=== PATIENT | female | born 1930 ===

== ENCOUNTER → 2017-10-07 | Outpatient (CLI) | payer OTHER | LOC: BMCIMAGING 15:26 | PROVIDERS: ATTEND Podiatrist Foot & Ankle Surgery | DX: M25.571 Pain in right ankle and joints of right foot (principal) ==

== ENCOUNTER 2018-10-23 14:25 | Emergency (ER) | payer OTHER ==
--- NOTE | 2018-10-23 14:36 | EDPHY ---
H & P Stated Complaint: n/v/d since eating lunch 20 minutes ago; feels better now Time Seen by Provider: 10/23/18 14:36 HPI/ROS: HPI CHIEF COMPLAINT: Diarrhea. HISTORY OF PRESENT ILLNESS: This is a 88-year-old female she has a history of hypertension, thyroid disease, presents emergency room after she was out at lunch today with her family. She had a very large meal which included a sandwich, chips, Israeli fries, Lemonade, guacamole, and typically does not eat a very large meal. And she was at a restaurant for an hour when getting ready leave the restaurant she developed bad diarrhea. She states was watery brown. She had use the bathroom 3 times. No vomiting but did have some nausea. Denies any chest pain or shortness of breath, denies diaphoresis, denies significant abdominal pain or cramps. She reports to me that recently she has been in physical therapy for balance issues, and dizziness, and she often eats a meal at 5:00 a.m. Which consist of a bagel with cream cheese and then does not eat another meal total 4:00 p.m.. However she has been working on eating very small regular meals. However she states that she does not typically eat large meals late lunch today and she contributes eating this large meal to her diarrhea process. She arrives to the emergency room with request of her family at bedside who became concerned about here. However she reports to me that she does not really feel ill she denies any abdominal pain chest pain or shortness of breath. Her diarrhea has resolved. No abdominal cramping. She states she feels much better and believes that the diarrhea is over would like to go home. Past Medical History: Hypertension, thyroid disease, balance issues, dizziness Past Surgical History: No recent surgery Social History: Lives alone, denies drugs alcohol tobacco. Family History: Noncontributory ROS REVIEW OF SYSTEMS: 10 Systems were reviewed and negative with the exception of the elements mentioned in the history of present illness. Exam Constitutional elderly, nontoxic no acute distress triage nursing summary reviewed, vital signs reviewed, awake/alert. Vital signs stable Eyes normal conjunctivae and sclera, EOMI, PERRLA. HENT normal inspection, atraumatic, moist mucus membranes, no epistaxis, neck supple/ no meningismus, no raccoon eyes. Respiratory clear to auscultation bilaterally, normal breath sounds, no respiratory distress, no wheezing. Cardiovascular rate normal, regular rhythm, no murmur, no edema, distal pulses normal. Gastrointestinal no significant tenderness on abdominal exam, soft, non-tender , no rebound, no guarding, normal bowel sounds, no distension, no pulsatile mass. Genitourinary no CVA tenderness. Musculoskeletal no midline vertebral tenderness, full range of motion, no calf swelling, no tenderness of extremities, no meningismus, good pulses, neurovascularly intact. Skin pink, warm, & dry, no rash, skin atraumatic. Neurologic awake, alert and oriented x 3, AAOx3, moves all 4 extremities equally, motor intact, sensory intact, CN II-XII intact, normal cerebellar, normal vision, normal speech. Psychiatric normal mood/affect. Heme/Lymph/Immune no lymphadenopathy. Differential Diagnosis: Includes but is not limited to in a particular order dehydration, electrolyte disturbance, acute diarrheal process, dumping syndrome , IBS diarrhea type, hyper gastric colic reflex Medical Decision Making: Plan for this patient IV establishment with IV fluid bolus, basic labs and re-evaluate. Re-evaluation: 1702: Patient re-evaluated this time resting comfortably. Abdomen soft nontender. She is not vomiting. She p.o. Challenge well. No further diarrhea. She received 1 L of normal saline fluid here and feels well hydrated. Labs reviewed unremarkable normal electrolytes normal kidney function. She denies any chest pain or shortness of breath she is eager for discharge requesting be discharged multiple times. Given that she has done well, labs reviewed, vital signs reviewed she feels well without any complaints allowed to be discharged. I recommend she stays well-hydrated, rest return emergency room she develops worsening abdominal pain , fever, vomiting. Source: Patient - Personal History Current Tetanus/Diphtheria Vaccine: Yes Current Tetanus Diphtheria and Acellular Pertussis (TDAP): Yes - Medical/Surgical History Hx Asthma: No Hx Chronic Respiratory Disease: No Hx Diabetes: No Hx Cardiac Disease: No Hx Renal Disease: No Hx Cirrhosis: No Hx Alcoholism: No Hx HIV/AIDS: No Hx Splenectomy or Spleen Trauma: No Other PMH: appy, hip - Social History Smoking Status: Never smoked Constitutional: Initial Vital Signs Temperature (C) 36.6 C 10/23/18 14:29 Heart Rate 101 H 10/23/18 14:29 Respiratory Rate 16 10/23/18 14:29 Blood Pressure 146/87 H 10/23/18 14:29 O2 Sat (%) 97 10/23/18 14:29 O2 Delivery Mode Room Air Allergies/Adverse Reactions: No Known Allergies Allergy (Verified 10/21/11 10:32) Home Medications: Medication Instructions Recorded Cholesterol Med 10/21/11 Irbesartan [Avapro] 0 mg PO DAILY 10/21/11 Multivitamins [Multivitamin (OTC)] 1 each PO DAILY 10/21/11 Medical Decision Making - Data Points Laboratory Results: Laboratory Results 10/23/18 15:25 10/23/18 15:25 10/23/18 10/23/18 15:25 15:25 WBC 7.69 10^3/uL 10^3/uL (3.80-9.50) RBC 4.68 10^6/uL 10^6/uL (4.18-5.33) Hgb 14.8 g/dL g/dL (12.6-16.3) Hct 43.9 % % (38.0-47.0) MCV 93.8 fL fL (81.5-99.8) MCH 31.6 pg pg (27.9-34.1) MCHC 33.7 g/dL g/dL (32.4-36.7) RDW 12.9 % % (11.5-15.2) Plt Count 269 10^3/uL 10^3/uL (150-400) MPV 9.2 fL fL (8.7-11.7) Neut % (Auto) 60.0 % % (39.3-74.2) Lymph % (Auto) 27.7 % % (15.0-45.0) Crane % (Auto) 6.9 % % (4.5-13.0) Eos % (Auto) 3.8 % % (0.6-7.6) Baso % (Auto) 1.2 % % (0.3-1.7) Nucleat RBC Rel Count 0.0 % % (0.0-0.2) Absolute Neuts (auto) 4.62 10^3/uL 10^3/uL (1.70-6.50) Absolute Lymphs (auto) 2.13 10^3/uL 10^3/uL (1.00-3.00) Absolute Monos (auto) 0.53 10^3/uL 10^3/uL (0.30-0.80) Absolute Eos (auto) 0.29 10^3/uL 10^3/uL (0.03-0.40) Absolute Basos (auto) 0.09 10^3/uL 10^3/uL (0.02-0.10) Absolute Nucleated RBC 0.00 10^3/uL 10^3/uL (0-0.01) Immature Gran % 0.4 % % (0.0-1.1) Immature Gran # 0.03 10^3/uL 10^3/uL (0.00-0.10) Sodium 136 mEq/L mEq/L (135-145) Potassium 4.4 mEq/L mEq/L (3.5-5.2) Chloride 101 mEq/L mEq/L (97-110) Carbon Dioxide 27 mEq/l mEq/l (22-31) Anion Gap 8 mEq/L mEq/L (6-14) BUN 21 mg/dL mg/dL (7-23) Creatinine 0.8 mg/dL mg/dL (0.6-1.0) Estimated GFR > 60 Glucose 153 mg/dL H mg/dL (70-100) Calcium 9.3 mg/dL mg/dL (8.5-10.4) Medications Given: Discontinued Medications Sodium Chloride (Ns) 1,000 mls @ 0 mls/hr IV EDNOW ONE; Wide Open PRN Reason: Protocol Stop: 10/23/18 15:19 Last Admin: 10/23/18 15:25 Dose: 1,000 mls Departure - Departure Disposition: Home, Routine, Self-Care Clinical Impression: Diarrhea Condition: Good Instructions: Acute Diarrhea (ED) Additional Instructions: 1. [place] diet over the next 24-48 hours. No spicy fatty greasy foods. 2. Return to the emergency room if you have worsening symptoms includes vomiting , abdominal pain, worsening symptoms Referrals: Kristan Calles MD [Primary Care Provider] - As per Instructions
[2018-10-23] MEDS ORDERED: NS 1,000 ML IV ONE (15:18)
[2018-10-23 15:35] LABS: PLATELET COUNT 269 10^3/uL (150-400)
[2018-10-23 17:16] VITALS: BP 136/74
== END 2018-10-23 17:15 | disposition home or self-care (01) ==
DX: R19.7 Diarrhea, unspecified (principal); I10 Essential (primary) hypertension; E03.9 Hypothyroidism, unspecified